=== PATIENT | female | born 1995 | race Caucasian/White ===

== ENCOUNTER 2021-10-21 08:55 | Outpatient (CLI) | payer OTHER | END 2021-10-21 08:56 | disposition home or self-care (01) | LOC: BICULT 08:55 | PROVIDERS: ATTEND Physician Assistant | DX: R10.84 Generalized abdominal pain (principal); K76.0 Fatty (change of) liver, not elsewhere classified | CPT/HCPCS: 76700 ==

== ENCOUNTER 2022-07-16 08:30 | Outpatient (CLI) | payer OTHER ==
[2022-07-16 08:58] LABS: BHCG - Serum Negative (NEGATIVE); Pregs Control Bar Appear? YES (CONTROL BAR)
[2022-07-16 08:59] LABS: Pregs Control Background? CLEAR/WHITE (CLR/WHITE)
== END 2022-07-16 08:31 | disposition home or self-care (01) ==
LOC: RAD 08:30
PROVIDERS: ATTEND Family Medicine
DX: Z01.818 Encounter for other preprocedural examination (principal); N97.9 Female infertility, unspecified
CPT/HCPCS: 58340; 74740; 84703